=== PATIENT | female | born 2000 | race Caucasian/White ===

== ENCOUNTER 2019-11-02 14:25 | Outpatient (CLI) | payer OTHER ==
[2019-11-02 15:04] LABS: APPEARANCE,URINE SLIGHTLY-CLOUDY; BILIRUBIN,URINE NEGATIVE (NEGATIVE); COLOR,URINE YELLOW; GLUCOSE, URINE NEGATIVE (NEGATIVE); KETONES,URINE NEGATIVE (NEGATIVE); LEUKOCYTE ESTERASE,URINE SMALL (NEGATIVE); NITRITE,URINE NEGATIVE (NEGATIVE); PROTEIN,URINE NEGATIVE (NEGATIVE); URINE SPECIFIC GRAVITY 1.015; UROBILINOGEN,URINE NEGATIVE mg/dL (<2.0)
[2019-11-02 15:24] LABS: URINE AMPHETAMINES SCREEN NEGATIVE; URINE BARBITURATES SCREEN NEGATIVE; URINE BENZODIAZEPINES SCREEN NEGATIVE; URINE COCAINE SCREEN NEGATIVE; URINE MARIJUANA (THC) SCREEN NEGATIVE; URINE METHADONE SCREEN NEGATIVE; URINE PHENCYCLIDINE SCREEN NEGATIVE
== END 2019-11-02 15:56 | disposition home or self-care (01) ==
LOC: LC 14:25
PROVIDERS: ATTEND Obstetrics & Gynecology
PROC: 4A1HXCZ Monitoring of Products of Conception, Cardiac Rate, External Approach (ICD-10-PCS; principal; 2019-11-02)
DX: O26.893 Other specified pregnancy related conditions, third trimester (principal); R10.2 Pelvic and perineal pain; Z3A.39 39 weeks gestation of pregnancy
CPT/HCPCS: 59025; 80307; 81005

== ENCOUNTER 2019-11-16 07:10 | Inpatient (IN) | payer OTHER ==
[2019-11-16] MEDS ORDERED: OXYTOCIN/NORMAL SALINE 20 UNIT/1,000 ML RTUINJ IV PRN ×2 (07:26→19:14)
[2019-11-16] MEDS ORDERED: RINGERS SOLUTION,LACTATED 1,000 ML IV ONE (07:32)
[2019-11-16] MEDS ORDERED: RINGERS SOLUTION,LACTATED 1,000 ML IV PRN (07:32)
[2019-11-16 07:54] LABS: APPEARANCE,URINE CLOUDY; BILIRUBIN,URINE NEGATIVE (NEGATIVE); COLOR,URINE YELLOW; GLUCOSE, URINE NEGATIVE (NEGATIVE); KETONES,URINE NEGATIVE (NEGATIVE); LEUKOCYTE ESTERASE,URINE SMALL (NEGATIVE); NITRITE,URINE NEGATIVE (NEGATIVE); PROTEIN,URINE NEGATIVE (NEGATIVE); URINE SPECIFIC GRAVITY 1.008; UROBILINOGEN,URINE NEGATIVE mg/dL (<2.0)
[2019-11-16 08:03] LABS: URINE AMPHETAMINES SCREEN NEGATIVE; URINE BARBITURATES SCREEN NEGATIVE; URINE BENZODIAZEPINES SCREEN NEGATIVE; URINE COCAINE SCREEN NEGATIVE; URINE MARIJUANA (THC) SCREEN NEGATIVE; URINE METHADONE SCREEN NEGATIVE; URINE PHENCYCLIDINE SCREEN NEGATIVE
[2019-11-16 08:17] LABS: ABSOLUTE EOSINOPHILS # (AUTO) 0.1 10^3/uL (0.0-0.6); ABSOLUTE LYMPHOCYTES (AUTO) 1.5 10^3/uL (0.5-4.7); ABSOLUTE MONOCYTES (AUTO) 0.6 10^3/uL (0.1-1.4); ABSOLUTE NEUT (AUTO) 5.2 10^3/uL (1.7-8.2); BASOPHILS % (AUTO) 0.1 % (0-2); EOSINOPHILS % (AUTO) 1.3 % (0-6); HEMATOCRIT 35.3 % (36.0-47.0); HEMOGLOBIN 12.7 g/dL (12.0-15.5); LYMPHOCYTES % (AUTO) 20.1 % (13-45); MEAN CORPUSCULAR HEMOGLOBIN 32.9 pg (27.0-33.4); MEAN CORPUSCULAR HGB CONC 35.9 g/dL (32.0-36.0); MEAN CORPUSCULAR VOLUME 92 fl (80-97); MONOCYTES % (AUTO) 7.6 % (3-13); PLATELET COUNT 164 10^3/uL (150-450); RED BLOOD COUNT 3.84 10^6/uL (3.72-5.28); RED CELL DISTRIBUTION WIDTH 13.6 % (11.5-14.0); SEGMENTED NEUTROPHILS % (AUTO) 70.9 % (42-78); TOTAL CELLS COUNTED % (AUTO) 100 %; WHITE BLOOD COUNT 7.4 10^3/uL (4.0-10.5)
[2019-11-16] MEDS ORDERED: OXYTOCIN 10 UNIT/ML VIAL ONE (08:34)
[2019-11-16] MEDS ORDERED: MISOPROSTOL 0.2 MG TABLET ONE (08:35)
[2019-11-16] MEDS ORDERED: OXYTOCIN/NORMAL SALINE 20 UNIT/1,000 ML RTUINJ ONE (08:35)
[2019-11-16] MEDS ORDERED: LIDOCAINE 1% INJ-PF (10 MG/ML) 30 ML SDV ONE (08:35)
[2019-11-16] MEDS ORDERED: BUPIVACAINE HCL 0.25 % INJ/PF (2.5 MG/1 ML) 30 ML VIAL ONE (14:33)
[2019-11-16] MEDS ORDERED: FENTANYL/BUPIVACAINE/NS/PF 300 MCG/150 ML RTUINJ EPI ONE (14:33)
[2019-11-16] MEDS ORDERED: EPHEDRINE SULFATE INJ 50 MG/1 ML AMPULE ONE (14:33)
[2019-11-16] MEDS ORDERED: FENTANYL CITRATE INJ/PF 100 MCG/2 ML AMPUL ONE (15:01)
[2019-11-16] MEDS ORDERED: BENZOCAINE/MENTHOL AEROSOL SPRAY 56 ML TOP PRN (19:14)
[2019-11-16] MEDS ORDERED: PROMETHAZINE HCL 25 MG SUPP.RECT PR PRN (19:14)
[2019-11-16] MEDS ORDERED: ACETAMINOPHEN 650 MG SUPP.RECT PR PRN (19:14)
[2019-11-16] MEDS ORDERED: NA PHOS,M-B/NA PHOS,DI-BA (ADULT) 133 ML ENEMA PR PRN (19:14)
[2019-11-16] MEDS ORDERED: ZOLPIDEM TARTRATE 5 MG TABLET PO PRN (19:14)
[2019-11-16] MEDS ORDERED: DIBUCAINE 1% OINTMENT 28 GM TP PRN (19:14)
[2019-11-16] MEDS ORDERED: MAGNESIUM HYDROXIDE SUSP 30 ML UDCUP PO PRN (19:14)
[2019-11-16] MEDS ORDERED: ACETAMINOPHEN WITH CODEINE #3 TABLET PO PRN ×2 (19:14)
[2019-11-16] MEDS ORDERED: PROMETHAZINE HCL 25 MG TABLET PO PRN (19:14)
[2019-11-16] MEDS ORDERED: DIPH/PERTUSS(ACELL)/TETANUS VAC/PF 0.5 ML SYR (>=10YO) IM PRN (19:14)
[2019-11-16] MEDS ORDERED: PSEUDOEPHEDRINE HCL 30 MG TABLET PO PRN (19:14)
[2019-11-16] MEDS ORDERED: PROMETHAZINE HCL INJ 25 MG/1 ML VIAL IV PRN (19:14)
[2019-11-16] MEDS ORDERED: DIPHENHYDRAMINE HCL 25 MG CAPSULE PO PRN (19:14)
[2019-11-16] MEDS ORDERED: GLYCERIN/WITCH HAZEL LEAF 1 EACH MED..WIPE TP PRN (19:14)
[2019-11-16] MEDS ORDERED: MEASLES,MUMPS&RUBELLA VACC/PF 0.5 ML VIAL SUBCUT PRN (19:14)
--- NOTE | 2019-11-16 20:08 | Delivery Summary ---
Del Sum A-C Datetime Report Generated by CPN: 11/16/2019 20:08 DELIVERY PERSONNEL DELIVERY PERSONNEL: [id number] Delivery Doctor:: Judith Torres MD Labor and Delivery Nurse:: Mary Ann Ronquillo RN Labor and Delivery Nurse:: Ana María Galarza RN Die Mounter/ACOUSTICAL CARPENTER: An [place] LICENSE REGISTRATION EXAMINER Additional Personnel: : Tiffanie Adams RN MATERNAL INFORMATION Delivery Anesthesia: Epidural Medications After Delivery: Pitocin Drip 20 Units/1000ml NSS Meds After Delivery Comment: 20 units in 1000mLs NS open bolus Delivery QBL: 150 Maternal Complications: None LABOR SUMMARY EDC: 11/09/2019 00:00 No. Babies in Womb: 1 Attempted: No Labor Anesthesia: Epidural LABOR INFORMATION Reason for Induction: Post Dates Onset of Labor: 11/16/2019 14:00 Complete Dilatation: 11/16/2019 18:34 Oxytocin: Induction Group B Beta Strep: Negative Antibiotics # of Doses: 0 Steroids Given: None Reason Steroids Not Administered: Not Applicable MEMBRANES Membranes Rupture Method: Spontaneous Rupture of Membranes: 11/16/2019 15:58 Length of Rupture (hr): 3.00 Amniotic Fluid Color: Clear Amniotic Fluid Amount: Small STAGES OF LABOR Stage 1 hr: 4 Stage 1 min: 34 Stage 2 hr: 0 Stage 2 min: 24 Stage 3 hr: 0 Stage 3 min: 4 Total Time in Labor hr: 5 Total Time in Labor min: 2 VAGINAL DELIVERY Episiotomy: None Laceration #1: Perineal Laceration Extension #1: First Degree Laceration Repair: Yes Laceration Repair Note: 2-0 chromic repair in normal fashion Sponge Count Correct: N/A Sharps Count Correct: N/A CSECTION DELIVERY Primary Indication: N/A Secondary Indication: N/A CSection Incidence: N/A Labor: N/A Elective: N/A CSection Incision: N/A BABY A INFORMATION Infant Delivery Date/Time: 11/16/2019 18:58 Method of Delivery: Vaginal Nurse Controlled Delivery: No Born in Route : No : N/A Forceps: N/A (Annotations: Data stored by [facility] on behalf of user) Vacuum Extraction: N/A Shoulder Dystocia : No PRESENTATION/POSITION BABY A Presentation: Cephalic Cephalic Presentation: Vertex Vertex Position: Right Occipital Anterior Breech Presentation: N/A PLACENTA INFORMATION BABY A Placenta Delivery Time : 11/16/2019 19:02 Placenta Method of Delivery: Spontaneous Placenta Status: Delivered SCORES BABY A Heart Rate 1 min: >100 bpm Resp Effort 1 min: Good Cry Reflex Irritability 1 min: Cough or Sneeze or Pulls Away Muscle Tone 1 min: Active Motion Color 1 min: Body [place], Extremities Blue SCORE 1 MIN: 9 Heart Rate 5 min: >100 bpm Resp Effort 5 min: Good Cry Reflex Irritability 5 min: Cough or Sneeze or Pulls Away Muscle Tone 5 min: Active Motion Color 5 min: Body [place], Extremities Blue SCORE 5 MIN: 9 INFANT INFORMATION BABY A Gestational Age at Delivery: 41.0 Gestational Status: Late Term- 41- 41.6 Weeks Outcome : Liveborn Condition : Stable Infant Sex: Female IDENTIFICATION BABY A Verification Date/Time: 11/16/2019 19:40 ID Band Number: [id number] Mother's Name Verified: Yes Infant WEIGHT/LENGTH BABY A Birthweight (gm): 3993 Infant Weight (lb): 8 Weight (oz): 13 Length (in): 20.75 Length (cm): 52.71 CORD INFORMATION BABY A No. Cord Vessels: 3 Nuchal Cord : Around Neck x1, Loose Cord Blood Taken: Yes-For Eval (Mom's Blood Type - or O+) Suction: None ASSESSMENT BABY A Skin to Skin: Yes BABY B INFORMATION : N/A SIGNATURES Signature: with User ID: Caridad
[2019-11-16] MEDS: FAMOTIDINE 20 MG TABLET PO SCH (21:42)
[2019-11-16] MEDS: IBUPROFEN 800 MG TABLET PO SCH (22:21)
[2019-11-17] MEDS: IBUPROFEN 800 MG TABLET PO SCH ×3 (05:09→22:35)
[2019-11-17 06:14] LABS: HEMATOCRIT 36.3 % (36.0-47.0); HEMOGLOBIN 12.9 g/dL (12.0-15.5); MEAN CORPUSCULAR HGB CONC 35.5 g/dL (32.0-36.0); MEAN CORPUSCULAR VOLUME 93 fl (80-97); PLATELET COUNT 141 10^3/uL (150-450); RED BLOOD COUNT 3.91 10^6/uL (3.72-5.28); RED CELL DISTRIBUTION WIDTH 13.9 % (11.5-14.0)
[2019-11-17] MEDS: DOCUSATE SODIUM 100 MG CAPSULE PO SCH ×2 (09:05→19:41)
[2019-11-17] MEDS: FERROUS SULFATE 325 MG TABLET PO SCH ×2 (09:05→18:32)
[2019-11-17] MEDS: SENNOSIDES/DOCUSATE 8.6-50 MG 1 EACH TABLET PO SCH (09:05)
[2019-11-17] MEDS: FAMOTIDINE 20 MG TABLET PO SCH ×2 (09:05→22:35)
[2019-11-17] MEDS: PRENATAL VITAMIN W DHA CAPSULE PO SCH (09:18)
--- NOTE | 2019-11-17 10:11 | PDOC PROGRESS REPORT ---
Subjective-OB Progress Note for:: 11/17/19 Subjective: reports bleeding slowing, pain controlled with current meds. denies needs Physical Exam (OB) Vital Signs: Temp Pulse Resp BP Pulse Ox 97.8 F 66 16 111/58 L 100 11/17/19 07:41 11/17/19 07:41 11/17/19 07:41 11/17/19 07:41 11/17/19 07:41 Intake & Output 11/16/19 11/17/19 11/18/19 06:59 06:59 06:59 Intake Total 500 Balance 500 Weight 80.7 kg - Abdomen Description: Soft Hernia Present: No Fundal Description: Firm, Midline Fundal Height: u/u - u/2 - Abdominal Distension: No distension Tenderness: Nontender - Extremities Lower extremities: Danii's sign - neg Calf: Normal, Nontender Objective-Diagnostic Laboratory: 11/17/19 05:57 11/17/19 05:57 WBC 8.0 RBC 3.91 Hgb 12.9 Hct 36.3 MCV 93 MCH 33.0 MCHC 35.5 RDW 13.9 Plt Count 141 L Assessment and Plan(PN) - Time Spent with Patient Time with patient: Less than 15 minutes - Disposition Anticipated Discharge: Home Within: within 24 hours
[2019-11-18] MEDS: IBUPROFEN 800 MG TABLET PO SCH (05:53)
[2019-11-18 08:10] VITALS: BP 109/65
[2019-11-18] MEDS: FERROUS SULFATE 325 MG TABLET PO SCH (11:01)
[2019-11-18] MEDS: FAMOTIDINE 20 MG TABLET PO SCH (11:07)
[2019-11-18] MEDS: DOCUSATE SODIUM 100 MG CAPSULE PO SCH (11:07)
[2019-11-18] MEDS: PRENATAL VITAMIN W DHA CAPSULE PO SCH (11:07)
[2019-11-18] MEDS: SENNOSIDES/DOCUSATE 8.6-50 MG 1 EACH TABLET PO SCH (11:07)
--- NOTE | 2019-11-18 12:03 | PDOC DISCHARGE SUMMARY ---
Impression - Admit/DC Date/PCP Admission Date/Primary Care Provider: 11/16/19 07:10 VASU JENSEN MD Discharge Date: 11/18/19 - Discharge Diagnosis (1) Perineal laceration Is this a current diagnosis for this admission?: Yes (2) Vaginal delivery Is this a current diagnosis for this admission?: Yes - Assessment Summary: stable for discharge, verbalized understanding of pp warning s/s - Additional Information Resuscitation Status: Full Code Discharge Diet: As Tolerated, Regular Discharge Activity: Activity As Tolerated, Balance Activity w/Rest, No Lifting Over 10 Pounds, Pelvic Rest, No tub bath, Walk Frequently Referrals: VASU JENSEN MD [Primary Care Provider] - Home Medications: Prenat 115/Iron Fum/Folic/Dss [ 19 Tablet] 1 each PO DAILY 11/09/19 Results Laboratory Results: WBC 8.0 10^3/uL (4.0-10.5) 11/17/19 05:57 RBC 3.91 10^6/uL (3.72-5.28) 11/17/19 05:57 Hgb 12.9 g/dL (12.0-15.5) 11/17/19 05:57 Hct 36.3 % (36.0-47.0) 11/17/19 05:57 MCV 93 fl (80-97) 11/17/19 05:57 MCH 33.0 pg (27.0-33.4) 11/17/19 05:57 MCHC 35.5 g/dL (32.0-36.0) 11/17/19 05:57 RDW 13.9 % (11.5-14.0) 11/17/19 05:57 Plt Count 141 10^3/uL (150-450) L 11/17/19 05:57 Lymph % (Auto) 20.1 % (13-45) 11/16/19 07:46 Cass % (Auto) 7.6 % (3-13) 11/16/19 07:46 Eos % (Auto) 1.3 % (0-6) 11/16/19 07:46 Baso % (Auto) 0.1 % (0-2) 11/16/19 07:46 Absolute Neuts (auto) 5.2 10^3/uL (1.7-8.2) 11/16/19 07:46 Absolute Lymphs (auto) 1.5 10^3/uL (0.5-4.7) 11/16/19 07:46 Absolute Monos (auto) 0.6 10^3/uL (0.1-1.4) 11/16/19 07:46 Absolute Eos (auto) 0.1 10^3/uL (0.0-0.6) 11/16/19 07:46 Absolute Basos (auto) 0.0 10^3/uL (0.0-0.2) 11/16/19 07:46 Seg Neutrophils % 70.9 % (42-78) 11/16/19 07:46 Urine Color YELLOW 11/16/19 07:20 Urine Appearance CLOUDY 11/16/19 07:20 Urine pH 6.0 (5.0-9.0) 11/16/19 07:20 Ur Specific [place] 1.008 11/16/19 07:20 Urine Protein NEGATIVE mg/dL (NEGATIVE) 11/16/19 07:20 Urine Glucose (UA) NEGATIVE mg/dL (NEGATIVE) 11/16/19 07:20 Urine Ketones NEGATIVE mg/dL (NEGATIVE) 11/16/19 07:20 Urine Blood NEGATIVE (NEGATIVE) 11/16/19 07:20 Urine Nitrite NEGATIVE (NEGATIVE) 11/16/19 07:20 Urine Bilirubin NEGATIVE (NEGATIVE) 11/16/19 07:20 Urine Urobilinogen NEGATIVE mg/dL (<2.0) 11/16/19 07:20 Ur Leukocyte Esterase SMALL (NEGATIVE) H 11/16/19 07:20 Urine Ascorbic Acid NEGATIVE (NEGATIVE) 11/16/19 07:20 Urine Opiates Screen NEGATIVE 11/16/19 07:20 Urine Methadone Screen NEGATIVE 11/16/19 07:20 Ur Barbiturates Screen NEGATIVE 11/16/19 07:20 Ur Phencyclidine Scrn NEGATIVE 11/16/19 07:20 Ur Amphetamines Screen NEGATIVE 11/16/19 07:20 U Benzodiazepines Scrn NEGATIVE 11/16/19 07:20 Urine Cocaine Screen NEGATIVE 11/16/19 07:20 U Marijuana (THC) Screen NEGATIVE 11/16/19 07:20 RPR NONREACTIVE (NONREACTIVE) 11/16/19 07:46 Blood Type O POSITIVE 11/16/19 07:46 Antibody Screen NEGATIVE 11/16/19 07:46
== END 2019-11-18 13:15 | disposition home or self-care (01) | DRG 807 ==
LOC: LR 07:10 → 2S 21:46
PROVIDERS: ADMIT Obstetrics & Gynecology; ATTEND Obstetrics & Gynecology
PROC: 10E0XZZ Delivery of Products of Conception, External Approach (ICD-10-PCS; principal; 2019-11-16)
PROC: 3E033VJ Introduction of Other Hormone into Peripheral Vein, Percutaneous Approach (ICD-10-PCS; 2019-11-16)
PROC: 0HQ9XZZ Repair Perineum Skin, External Approach (ICD-10-PCS; 2019-11-16)
DX: O48.0 Post-term pregnancy (principal); Z37.0 Single live birth; Z3A.41 41 weeks gestation of pregnancy; O70.0 First degree perineal laceration during delivery; O69.81X0 Labor and delivery complicated by cord around neck, without compression, not applicable or unspecified
CPT/HCPCS: 36415; 80307; 81005; 85025; 85027; 86592; 86850; 86900; 86901; 94760; J2590; J3010; J3490

== ENCOUNTER 2020-04-20 13:48 | Emergency (ER) | payer OTHER ==
--- NOTE | 2020-04-20 16:27 | ER Document Report ---
ED Medical Screen (RME) - General Chief Complaint: Abdominal Pain Stated Complaint: ABDOMINAL PAIN Time Seen by Provider: 04/20/20 16:21 Mode of Arrival: Ambulatory Information source: Patient Notes: 19-year-old female presented to ED for complaint of right upper quadrant abdominal pain for about 5 months. She states she gave about 5 months ago and she has had this spot that is very tender since then. She is alert oriented respirations regular nonlabored speaking in full sentences walks with even steady gait. She denies use to smoke alcohol or drugs. Pulse was 90 in the triage room. O2 sat was 98. Patient was gone for about 2 hours. I did call her several times and they told me she was gone and then she showed back up about a half an hour ago. I have greeted and performed a rapid initial assessment of this patient. A comprehensive ED assessment and evaluation of the patient, analysis of test results and completion of medical decision making process will be conducted by an additional ED providers. - Related Data Allergies/Adverse Reactions: No Known Allergies Allergy (Verified 11/09/19 19:11) Physical Exam - Vital signs Vitals: Temp Pulse Resp BP Pulse Ox 98.7 F 117 H 18 115/67 95 04/20/20 13:58 04/20/20 13:58 04/20/20 13:58 04/20/20 13:58 04/20/20 13:58 Course - Vital Signs Vital signs: Temp Pulse Resp BP Pulse Ox 98.7 F 117 H 18 115/67 95 04/20/20 13:58 04/20/20 13:58 04/20/20 13:58 04/20/20 13:58 04/20/20 13:58
[2020-04-20 17:10] LABS: APPEARANCE,URINE SLIGHTLY-CLOUDY; BILIRUBIN,URINE NEGATIVE (NEGATIVE); COLOR,URINE YELLOW; GLUCOSE, URINE NEGATIVE (NEGATIVE); KETONES,URINE NEGATIVE (NEGATIVE); LEUKOCYTE ESTERASE,URINE NEGATIVE (NEGATIVE); NITRITE,URINE NEGATIVE (NEGATIVE); PROTEIN,URINE 30 mg/dL (NEGATIVE); URINE SPECIFIC GRAVITY 1.028; UROBILINOGEN,URINE NEGATIVE mg/dL (<2.0)
--- NOTE | 2020-04-20 17:27 | ER Document Report ---
ED GI/ - General Chief Complaint: Abdominal Pain Stated Complaint: ABDOMINAL PAIN Time Seen by Provider: 04/20/20 16:21 Mode of Arrival: Ambulatory - [facility] Patient complains to provider of: Abdominal pain Onset: Other - 5 months ago Timing/Duration: Intermittent Context: denies: Bad food, , Recent trauma Location: RUQ. No: Chest pain : 2 Para: 2 Associated symptoms: denies: Blood in stool, Chest pain, Chills, Constipation, Diarrhea, Dizzy, Dysuria, Fever, Hurts to breath, Lightheaded, Loss of appetite, Nausea, Shortness of breath Exacerbated by: Standing Relieved by: Supine Notes: 04/20/20 17:22 Patient is a 19-year-old female who presents with right upper quadrant abdominal pain. Patient states she has had this pain since she gave 5 months ago. Patient states it was a normal delivery. She has never had any abdominal s urgery. Patient states the pain is worsened with palpation. She states that it is worse when she stands up. She is afraid to exercise due to this pain. It is not present currently unless the area is palpated. Patient has had a follow-up with her OB but forgot to mention it. She denies any associated symptoms including no nausea, vomiting, fever, chills, diarrhea, or constipation. Patient initially refused blood work because she does not like needles. - Related Data Allergies/Adverse Reactions: No Known Allergies Allergy (Verified 04/20/20 16:26) Home Medications: non Past Medical History - General Information source: Patient - Social History Smoking Status: Never Smoker Chew tobacco use (# tins/day): No Frequency of alcohol use: None Drug Abuse: None Family History: Reviewed & Not Pertinent Patient has homicidal ideation: No Surgical Hx: Negative Past Surgical History: Reports: None Review of Systems - Review of Systems Notes: CONSTITUTIONAL: No fever, fatigue or weight loss. SKIN: No rash. HENT: No congestion, ear pain, or sore throat. EYES: No recent vision problems or eye pain. ENDOCRINE: No polyuria or polydipsia. CARDIOVASCULAR: No chest pain or edema. RESPIRATORY: No cough, shortness of breath, congestion, or wheezing. GASTROINTESTINAL: No nausea, vomiting, bloody stools or diarrhea. Positive for abdominal pain. GENITOURINARY: No dysuria. MUSCULOSKELETAL: No joint pain or swelling. LYMPHATIC: No swollen glands. NEUROLOGIC: No seizures. No headache, focal weakness or sensory changes. HEMATOLOGIC: No unusual bruising or bleeding. PSYCHIATRIC: No depression or anxiety. Physical Exam - Vital signs Vitals: Temp Pulse Resp BP Pulse Ox 98.7 F 117 H 18 115/67 95 04/20/20 13:58 04/20/20 13:58 04/20/20 13:58 04/20/20 13:58 04/20/20 13:58 - Notes Notes: VITAL SIGNS: Within normal limits. GENERAL: No acute distress, non-toxic appearance. Appears anxious but in no acute distress. HEAD: Normal with no signs of head trauma. EYES: EOMI, conjunctiva normal, no discharge. EARS: Hearing grossly intact. NOSE: Normal. NECK: Normal range of motion, no tenderness, supple, no lymphadenopathy, No adenopathy, no JVD. CHEST: Clear breath sounds bilaterally. No wheezes, rales, or rhonchi. CARDIAC: Regular rate and rhythm. S1 and S2, without murmurs, gallops, or rubs. VASCULAR: No Edema. ABDOMEN: Normal and soft with no tenderness. Nontender to palpation of abdomen. No hernia palpated. GASTROINTESTINAL: Bowel sounds normal GENITOURINARY: Normal, No tenderness LYMPATHTIC: No lymphadenopathy noted. MUSCULOSKELETAL: Good range of motion of all major joints. Extremities without clubbing, cyanosis or edema. NEUROLOGICAL: Alert and oriented x 3. No focal sensory or strength deficits. Speech normal. Follows commands appropriately. PSYCHIATRIC: Normal Affect, judgement and mood. SKIN: Normal appearance with no rashes or lesions. Course - Re-evaluation Re-evalutation: 04/20/20 17:27 Patient appears well on exam. I do not feel a palpable hernia. She is in no acute distress. She originally did not want blood work as she does not like needles but has agreed to it. Patient's ultrasound ordered from triage was unremarkable. Her lab work was also reviewed. I discussed all results with the patient. I did offer her a CT scan but patient declined. She states that she would like to be discharged. I did provide her with a PCP to follow-up with. Patient is very agreeable to this. She is declining any further testing or work up and states she would like to go home. She was given strict return precautions including worsening of pain, nausea, vomiting or any other symptoms and she verbalized understanding. 04/20/20 18:51 - Vital Signs Vital signs: Temp Pulse Resp BP Pulse Ox 99.2 F 82 18 114/74 97 04/20/20 18:21 04/20/20 18:21 04/20/20 18:21 04/20/20 18:21 04/20/20 18:21 - Laboratory Result Diagrams: 04/20/20 17:22 04/20/20 17:22 Laboratory results interpreted by me: 04/20/20 04/20/20 16:44 17:22 Calcium 10.3 H Total Protein 8.6 H Albumin 5.1 H Urine Protein 30 H - Diagnostic Test Radiology reviewed: Image reviewed, Reports reviewed Discharge - Discharge Clinical Impression: Abdominal pain Qualifiers: Abdominal location: right upper quadrant Qualified Code(s): R10.11 - Right upper quadrant pain Condition: Stable Disposition: HOME, SELF-CARE Instructions: Abdominal Pain ([facility]) Additional Instructions: Please follow-up with your family doctor. Return to the ER if you have any return of abdominal pain or any vomiting, fevers, diarrhea or other symptoms.
[2020-04-20 17:32] LABS: ABSOLUTE LYMPHOCYTES (AUTO) 1.3 10^3/uL (0.5-4.7); ABSOLUTE MONOCYTES (AUTO) 0.4 10^3/uL (0.1-1.4); ABSOLUTE NEUT (AUTO) 4.4 10^3/uL (1.7-8.2); BASOPHILS % (AUTO) 0.5 % (0-2); EOSINOPHILS % (AUTO) 0.8 % (0-6); HEMATOCRIT 41.8 % (36.0-47.0); HEMOGLOBIN 14.7 g/dL (12.0-15.5); MEAN CORPUSCULAR HEMOGLOBIN 31.4 pg (27.0-33.4); MEAN CORPUSCULAR HGB CONC 35.1 g/dL (32.0-36.0); MEAN CORPUSCULAR VOLUME 90 fl (80-97); MONOCYTES % (AUTO) 6.6 % (3-13); PLATELET COUNT 246 10^3/uL (150-450); RED BLOOD COUNT 4.68 10^6/uL (3.72-5.28); SEGMENTED NEUTROPHILS % (AUTO) 71.1 % (42-78); TOTAL CELLS COUNTED % (AUTO) 100 %; WHITE BLOOD COUNT 6.2 10^3/uL (4.0-10.5)
[2020-04-20 17:51] LABS: ALBUMIN 5.1 g/dL (3.5-5.0); ALKALINE PHOSPHATASE 66 U/L (38-126); ANION GAP 11 (5-19); ASPARTATE AMINO TRANSFERASE 25 U/L (14-36); BILIRUBIN,DIRECT 0.2 mg/dL (0.0-0.4); BILIRUBIN,TOTAL 0.6 mg/dL (0.2-1.3); BLOOD UREA NITROGEN 16 mg/dL (7-20); CALCIUM 10.3 mg/dL (8.4-10.2); CARBON DIOXIDE 25 mmol/L (22-30); CHLORIDE 105 mmol/L (98-107); GLUCOSE 94 mg/dL (75-110); POTASSIUM 4.3 mmol/L (3.6-5.0); TOTAL PROTEIN 8.6 g/dL (6.3-8.2)
--- NOTE | 2020-04-20 17:51 | RADIOLOGY REPORT (SQ) ---
EXAM DESCRIPTION: U/S ABDOMEN LIMITED W/O DOP IMAGES COMPLETED DATE/TIME: 04/20/2020 5:15 pm REASON FOR STUDY: ruq tenderness COMPARISON: None. TECHNIQUE: Dynamic and static grayscale images acquired of the abdomen and recorded on PACS. Additio nal selected color Doppler and spectral images recorded. LIMITATIONS: None. FINDINGS: PANCREAS: No masses. Visualized pancreatic duct normal caliber. LIVER: No masses. Echotexture normal. LIVER VASCULATURE: Normal directional flow of the main portal vein and hepatic veins. GALLBLADDER: No stones. Normal wall thickness. No pericholecystic fluid. ULTRASOUND-DETECTED PAEZ'S SIGN: Negative. INTRAHEPATIC DUCTS AND COMMON DUCT: CBD and intrahepatic ducts normal caliber. No filling defects. INFERIOR VENA CAVA: Normal flow. AORTA: No aneurysm. RIGHT KIDNEY: Normal size. Normal echogenicity. No solid or suspicious masses. No hydronephrosis. No calcifications. PERITONEAL AND RIGHT PLEURAL SPACE: No ascites or effusions. OTHER: No other significant findings. IMPRESSION: NORMAL RIGHT UPPER QUADRANT ULTRASOUND. TECHNICAL DOCUMENTATION: JOB ID: [id number] 2010 [employer]- All Rights Reserved Reading location - IP/workstation name: [email or web address]
[2020-04-20 18:24] VITALS: BP 114/74
== END 2020-04-20 18:24 | disposition home or self-care (01) ==
LOC: ER 13:48
DX: R10.11 Right upper quadrant pain (principal)
CPT/HCPCS: 36415; 76705; 80053; 81001; 81025; 83690; 84703; 85025; 99284

== ENCOUNTER → 2020-05-04 | Outpatient (CLI) | payer OTHER ==
--- NOTE | 2020-05-04 14:39 | RADIOLOGY REPORT (SQ) ---
EXAM DESCRIPTION: CT ABD/PELVIS WITH IV ORAL IMAGES COMPLETED DATE/TIME: 05/04/2020 8:25 am REASON FOR STUDY: R10.84 GENERALIZED ABDOMINAL PAIN R10.84 GENERALIZED ABDOMINAL PAIN Intermittent right upper quadrant pain. COMPARISON: Abdominal ultrasound 04/20/2020. TECHNIQUE: CT scan of the abdomen and pelvis performed using helical scanning technique with dynamic intravenous contrast injection. No oral contrast. Images reviewed with lung, soft tissue, and bone windows. Reconstructed coronal and sagittal MPR images reviewed. Delayed images for evaluation of the urinary system also acquired. All images stored on PACS. All CT scanners at this facility use dose modulation, iterative reconstruction, and/or weight based d osing when appropriate to reduce radiation dose to as low as reasonably achievable (ALARA). [facility]: Dose Right [facility]: CareDose [facility]: Dose Right [facility]: Teradose 4D [facility]: [employer] Voice [employer]ognition Systems CONTRAST TYPE AND DOSE: contrast/concentration: Isovue 350.00 mmol/ml; Total Contrast Delivered: 78. 0 ml; Total Saline Delivered: 67.0 ml RENAL FUNCTION: GFR > 60. RADIATION DOSE: CT Rad equipment meets quality standard of care and radiation dose reduction techniq ues were employed. CTDIvol: 4.8 - 4.8 mGy. DLP: 513 mGy-cm.. LIMITATIONS: None. FINDINGS: LOWER CHEST: No significant findings. No nodules or infiltrates. LIVER: Normal size. No masses. No dilated ducts. SPLEEN: Normal size. No focal lesions. PANCREAS: No masses. No significant calcifications. No adjacent inflammation or peripancreatic fluid collections. Pancreatic duct not dilated. GALLBLADDER: No identified stones by CT criteria. No inflammatory changes to suggest cholecystitis. ADRENAL GLANDS: No significant masses or asymmetry. RIGHT KIDNEY AND URETER: No solid masses. No significant calcifications. No hydronephrosis or hyd roureter. LEFT KIDNEY AND URETER: No solid masses. No significant calcifications. No hydronephrosis or hydr oureter. AORTA AND VESSELS: No aneurysm. No dissection. Renal arteries, SMA, celiac without stenosis. RETROPERITONEUM: No retroperitoneal adenopathy, hemorrhage or masses. BOWEL AND PERITONEAL CAVITY: There is moderate stool throughout the colon which can be seen with cons tipation. No masses or inflammatory changes. No free fluid or peritoneal masses. APPENDIX: Normal. PELVIS: Uterus and ovaries have normal size. Incidentally noted right corpus luteum follicle. No pe lvic free fluid or adenopathy. Urinary bladder has normal contour with no bladder wall thickening or intraluminal bladder mass or debris. ABDOMINAL WALL: No masses. No hernias. BONES: No significant or acute findings. OTHER: No other significant finding. IMPRESSION: 1. Moderate stool in the colon which can be seen with constipation. TECHNICAL DOCUMENTATION: JOB ID: [id number] Quality ID # [id number]: Final reports with documentation of one or more dose reduction techniques (e.g., Au tomated exposure control, adjustment of the mA and/or kV according to patient size, use of iterative reconstruction technique) 2010 [employer]- All Rights Reserved Reading location - IP/workstation name: [email or web address]
== END ==
LOC: RAD 08:57
PROVIDERS: ATTEND Surgery
DX: K59.00 Constipation, unspecified (principal); R10.84 Generalized abdominal pain
CPT/HCPCS: 74177